=== PATIENT | male | born 1980 | race Caucasian/White ===

== ENCOUNTER 2020-02-18 08:55 | Outpatient (CLI) | payer OTHER ==
--- NOTE | 2020-02-18 09:52 | RAD ---
TWO VIEWS CHEST: DATE: 02/18/2020. PROVIDED CLINICAL HISTORY: Tobacco use. FINDINGS: No comparisons. Cardiac and mediastinal silhouette is within normal limits. No focal consolidation, pleural fluid, or pneumothorax apparent. Lungs appear hyperinflated. IMPRESSION: No evidence for an acute cardiopulmonary process. POS: [facility]
== END 2020-02-18 08:56 | disposition home or self-care (01) ==
LOC: BICRAD 08:55
PROVIDERS: ATTEND Family Medicine
DX: Z72.0 Tobacco use (principal)
CPT/HCPCS: 71046

== ENCOUNTER 2020-05-09 15:19 | Outpatient (CLI) | payer OTHER ==
--- NOTE | 2020-05-09 15:38 | RAD ---
XR Lumbar Spine 2 Or 3 View History: Left-sided sciatica Comparison: None. Findings: 5 nonrib-bearing lumbar type vertebrae. No fracture. There appear to be pars interarticular is defects at L5 with 2 mm anterolisthesis. No fracture. Mild L4/L5 degenerative disc space height loss. SI joints are remarkable. Impression: 1. 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 2. Mild-moderate degenerative disc space disease at L4/L5.
== END 2020-05-09 15:20 | disposition home or self-care (01) ==
LOC: BICRAD 15:19
PROVIDERS: ATTEND Physician Assistant
DX: M51.16 Intervertebral disc disorders with radiculopathy, lumbar region (principal)
CPT/HCPCS: 72100

== ENCOUNTER 2021-04-08 10:04 | Outpatient (CLI) | payer OTHER ==
[2021-04-08 12:59] LABS: Anion Gap 15 mmol/L (10-20); BUN (Urea Nitrogen) 15 mg/dL (8.9-20.6); Calc. Creatinine Clearance 0 mL/min (70-130); Calcium 9.5 mg/dL (7.8-10.44); Carbon Dioxide 25 mmol/L (22-29); Chloride 104 mmol/L (98-107); Glucose 81 mg/dL (70-105); Potassium 4.6 mmol/L (3.5-5.1); Sodium 139 mmol/L (136-145)
[2021-04-08 13:03] LABS: Hemoglobin 14.7 g/dL (13.5-17.5); Mean Corpuscular HGB CONC 33.7 g/dL (32.0-36.0); Mean Corpuscular Hemoglobin 29.9 pg (27.0-33.0); Mean Corpuscular Volume 88.8 fl (81.2-95.1); Mean Platelet Volume 9.9 fl (7.4-10.4); Platelet Count 303 10x3/uL (150-450); RBC Distribution Width 11.9 % (11.5-14.5); Red Blood Cell (RBC) Count 4.91 10x6/uL (4.32-5.72); White Blood Cell (WBC) Count 7.3 10x3/uL (3.5-10.5)
== END 2021-04-08 10:05 | disposition home or self-care (01) ==
LOC: LABBT 10:04
PROVIDERS: ATTEND Neurological Surgery
DX: Z01.818 Encounter for other preprocedural examination (principal); M54.16 Radiculopathy, lumbar region
CPT/HCPCS: 80048; 85027; 93005; 93010

== ENCOUNTER 2021-04-13 06:13 | Observation (INO) | payer OTHER ==
[2021-04-09 13:08] VITALS: BMI 29.5
[2021-04-13] MEDS ORDERED: Fentanyl 100 MCG/2 ML VIAL ONE ×3 (07:06→09:36)
[2021-04-13] MEDS ORDERED: HYDROmorphone 0.5 MG/0.5 ML SYRINGE ONE (07:06)
[2021-04-13] MEDS ORDERED: Midazolam HCl 2 mg/2 ml Vial ONE (07:09)
[2021-04-13] MEDS ORDERED: Dexamethasone 20 MG/5 ML VIAL ONE (07:26)
[2021-04-13] MEDS ORDERED: PROPOFOL 200 MG/20 ML VIAL ONE (07:26)
[2021-04-13] MEDS ORDERED: Rocuronium Bromide 10 MG/ML (10ML VIAL) ONE (07:26)
[2021-04-13] MEDS ORDERED: diphenhydrAMINE 50 MG/ML VIAL ONE (07:26)
[2021-04-13] MEDS ORDERED: Glycopyrrolate 0.2 MG/ML 5 ML SYRINGE ONE (07:26)
[2021-04-13] MEDS ORDERED: Ondansetron PF 4 MG/2 ML Vial ONE (07:26)
[2021-04-13] MEDS ORDERED: Ketorolac Tromethamine 30 MG/ML VIAL ONE (07:26)
[2021-04-13] MEDS ORDERED: Ondansetron HCl/PF 4 MG/2 ML Vial IVP PRN (09:14)
[2021-04-13] MEDS ORDERED: PACU-Morphine 4MG/ML VIAL SLOW IVP PRN (09:14)
[2021-04-13] MEDS ORDERED: Meperidine HCl/PF 25 MG/ML VIAL SLOW IVP PRN (09:14)
[2021-04-13] MEDS ORDERED: Morphine Sulfate 2 MG/ML SYRINGE SLOW IVP PRN (09:14)
[2021-04-13] MEDS ORDERED: Promethazine HCl 25 MG/ML VIAL IVPB PRN (09:14)
[2021-04-13] MEDS ORDERED: Promethazine HCl 25 MG/ML VIAL IM PRN (10:00)
[2021-04-13] MEDS ORDERED: Promethazine HCl 12.5 MG SUPP PR PRN (10:00)
[2021-04-13] MEDS ORDERED: Promethazine 25 MG TAB PO PRN (10:00)
[2021-04-13] MEDS ORDERED: Mag-Al 1200 mg/1200 mg/30 ML UDCUP PO PRN (10:00)
[2021-04-13] MEDS ORDERED: traMADol HCl 50 MG TAB PO PRN (10:00)
[2021-04-13] MEDS ORDERED: diphenhydrAMINE 25 MG CAP PO PRN (10:00)
[2021-04-13] MEDS ORDERED: Acetaminophen/Codeine 30-300mg Tablet PO PRN (10:00)
[2021-04-13] MEDS ORDERED: Morphine 2 MG/ML VIAL SLOW IVP PRN (10:00)
[2021-04-13] MEDS ORDERED: diphenhydrAMINE 50 MG/ML VIAL IVP PRN (10:00)
[2021-04-13] MEDS ORDERED: Ondansetron PF 4 MG/2 ML Vial IM PRN (10:00)
[2021-04-13] MEDS ORDERED: Milk Of Magnesia 30 ML UDCUP PO PRN (10:00)
[2021-04-13] MEDS: Sodium Chloride 0.9% 1,000 ML IV SCH ×3 (11:44→23:03)
[2021-04-13] MEDS: tiZANidine HCl 4 MG TAB PO PRN ×2 (13:03→19:27)
[2021-04-13] MEDS: traMADol HCl 50 MG TAB PO PRN ×2 (13:03→19:25)
[2021-04-13] MEDS: CEFAZOLIN 2 GM in Premix Bag 1 BAG IVPB SCH ×2 (15:05→21:18)
[2021-04-13] MEDS: Morphine 4 MG/ML VIAL SLOW IVP PRN ×2 (15:06→22:38)
[2021-04-14] MEDS: traMADol HCl 50 MG TAB PO PRN ×2 (01:47→07:46)
[2021-04-14] MEDS: tiZANidine HCl 4 MG TAB PO PRN ×3 (01:48→15:03)
[2021-04-14] MEDS: Acetaminophen/Codeine 30-300mg Tablet PO PRN ×2 (10:53→16:19)
[2021-04-14 11:10] VITALS: BP 108/52; TEMP 98.2
[2021-04-14] MEDS: Sodium Chloride 0.9% 1,000 ML IV SCH (13:43)
== END 2021-04-14 16:40 | disposition home or self-care (01) ==
LOC: SDC 06:13 → SJJU 10:30
PROVIDERS: ADMIT Neurological Surgery; ATTEND Neurological Surgery
PROC: 0SG1071 Fusion of 2 or more Lumbar Vertebral Joints with Autologous Tissue Substitute, Posterior Approach, Posterior Column, Open Approach (ICD-10-PCS; principal; 2021-04-13)
PROC: 0ST20ZZ Resection of Lumbar Vertebral Disc, Open Approach (ICD-10-PCS; 2021-04-13)
DX: M51.16 Intervertebral disc disorders with radiculopathy, lumbar region (principal); J45.909 Unspecified asthma, uncomplicated; Z87.891 Personal history of nicotine dependence; Z79.899 Other long term (current) drug therapy
CPT/HCPCS: 76000; 96365; 96375; 96376; C1713; C1768; G0378; J0690; J1100; J1170; J1200; J1885; J2250; J2270; J2405; J2704; J3010; J3370; J3490

== ENCOUNTER 2021-05-05 12:40 | Outpatient (CLI) | payer OTHER | END 2021-05-05 12:41 | disposition home or self-care (01) | LOC: TBSI PT 12:40 | PROVIDERS: ATTEND Neurological Surgery | DX: M54.16 Radiculopathy, lumbar region (principal); Z98.1 Arthrodesis status | CPT/HCPCS: 72100 ==

== ENCOUNTER 2021-06-16 09:00 | Outpatient (CLI) | payer OTHER | END 2021-06-16 09:01 | disposition home or self-care (01) | LOC: TBSIIMAG 09:00 | PROVIDERS: ATTEND Neurological Surgery | DX: M51.26 Other intervertebral disc displacement, lumbar region (principal); Z96.7 Presence of other bone and tendon implants | CPT/HCPCS: 72100 ==

== ENCOUNTER 2021-07-17 15:09 | Outpatient (CLI) | payer OTHER ==
[2021-07-18 17:41] LABS: SARS-CoV-2 PCR by NAA Not Detected (NotDetected)
== END 2021-07-17 15:10 | disposition home or self-care (01) ==
LOC: LABBT 15:09
PROVIDERS: ATTEND Otolaryngology Plastic Surgery within the Head & Neck
DX: Z01.812 Encounter for preprocedural laboratory examination (principal); J32.8 Other chronic sinusitis; J33.0 Polyp of nasal cavity; J34.2 Deviated nasal septum; J34.3 Hypertrophy of nasal turbinates; Z20.822 Contact with and (suspected) exposure to COVID-19
CPT/HCPCS: U0003; U0005

== ENCOUNTER 2022-02-17 07:00 | Day surgery (SDC) | payer OTHER ==
[2022-02-15 11:03] VITALS: BMI 28.5
[2022-02-17] MEDS ORDERED: AFRIN NASAL MIST 15 ML BOT ONE ×2 (07:26→08:25)
[2022-02-17] MEDS ORDERED: Lidocaine 1% MPF 2 ML VIAL ONE (07:29)
[2022-02-17] MEDS ORDERED: Midazolam HCl 2 mg/2 ml Vial ONE ×2 (08:01→08:26)
[2022-02-17] MEDS ORDERED: Lidocaine 1% w/Epinephrine 1:100K 20 ML VIAL ONE ×2 (08:25→10:47)
[2022-02-17] MEDS ORDERED: Fentanyl 250 MCG/5 ML VIAL ONE (08:26)
[2022-02-17] MEDS ORDERED: HYDROmorphone 0.5 MG/0.5 ML SYRINGE ONE (08:26)
[2022-02-17] MEDS ORDERED: Succinylcholine 200 MG/10 ml SYRINGE FS ONE (10:00)
[2022-02-17] MEDS ORDERED: Ondansetron PF 4 MG/2 ML Vial ONE (10:00)
[2022-02-17] MEDS ORDERED: PROPOFOL 200 MG/20 ML VIAL ONE (10:00)
[2022-02-17] MEDS ORDERED: Dexamethasone 20 MG/5 ML VIAL ONE (10:00)
[2022-02-17] MEDS ORDERED: Lidocaine 1% PF 5 ML VIAL ONE (10:00)
[2022-02-17] MEDS ORDERED: Bacitracin Zinc Ointment 30 gm TUBE ONE (10:19)
[2022-02-17] MEDS ORDERED: hydrALAZINE 20 MG/ML VIAL ONE (12:06)
== END 2022-02-17 13:20 | disposition home or self-care (01) ==
LOC: SDC 07:00
PROVIDERS: ATTEND Otolaryngology Plastic Surgery within the Head & Neck
DX: J32.9 Chronic sinusitis, unspecified (principal); J33.8 Other polyp of sinus; J30.89 Other allergic rhinitis; B48.8 Other specified mycoses; J34.2 Deviated nasal septum; J34.3 Hypertrophy of nasal turbinates; J45.909 Unspecified asthma, uncomplicated; J34.89 Other specified disorders of nose and nasal sinuses; Z87.891 Personal history of nicotine dependence; Z79.899 Other long term (current) drug therapy; Z98.1 Arthrodesis status
CPT/HCPCS: 87070; 87102; 87205; 87206; 88304; C2625; J0360; J1100; J1170; J2250; J2405; J2704; J3010

== ENCOUNTER 2022-03-02 17:00 | Outpatient (CLI) | payer OTHER | END 2022-03-02 17:01 | disposition home or self-care (01) | LOC: SLEEPLAB 17:00 | PROVIDERS: ATTEND Family Medicine | DX: G47.33 Obstructive sleep apnea (adult) (pediatric) (principal); R06.83 Snoring | CPT/HCPCS: 95800 ==

== ENCOUNTER 2022-07-21 19:30 | Outpatient (CLI) | payer OTHER | END 2022-07-21 19:31 | disposition home or self-care (01) | LOC: SLEEPLAB 19:30 | PROVIDERS: ATTEND Family Medicine | DX: G47.33 Obstructive sleep apnea (adult) (pediatric) (principal); R53.83 Other fatigue; R06.83 Snoring; G47.10 Hypersomnia, unspecified; J45.909 Unspecified asthma, uncomplicated; G47.00 Insomnia, unspecified; I49.1 Atrial premature depolarization | CPT/HCPCS: 95810 ==

== ENCOUNTER 2022-11-01 14:00 | Inpatient (IN) | payer OTHER ==
[2022-11-08 09:25] LABS: SARS-CoV-2 NAA Rapid Test Not Detected (NotDetected)
[2022-11-08] MEDS ORDERED: Midazolam HCl 2 mg/2 ml Vial ONE (09:54)
[2022-11-08] MEDS ORDERED: Vancomycin 1 GM VIAL ONE (10:32)
[2022-11-08] MEDS ORDERED: Sodium Chloride 0.9% 100 ML ONE (10:48)
[2022-11-08] MEDS ORDERED: CEFAZOLIN 2 GM VIAL ONE (10:48)
[2022-11-08] MEDS ORDERED: fentaNYL PF 100 MCG/2 ML SYRINGE ONE ×2 (10:55→14:12)
[2022-11-08] MEDS ORDERED: Ketorolac Tromethamine 30 MG/ML VIAL ONE (10:56)
[2022-11-08] MEDS ORDERED: Ondansetron PF 4 MG/2 ML Vial ONE (10:56)
[2022-11-08] MEDS ORDERED: PROPOFOL 200 MG/20 ML VIAL ONE (10:56)
[2022-11-08] MEDS ORDERED: Rocuronium Bromide 10 MG/ML (10ML VIAL) ONE (10:56)
[2022-11-08] MEDS ORDERED: Dexamethasone 20 MG/5 ML VIAL ONE (10:56)
[2022-11-08] MEDS ORDERED: HYDROmorphone 2 MG/ML VIAL ONE (11:27)
[2022-11-08] MEDS ORDERED: Promethazine HCl 25 MG/ML VIAL IM PRN (11:29)
[2022-11-08] MEDS ORDERED: Meperidine HCl/PF 25 MG/ML VIAL SLOW IVP PRN (11:29)
[2022-11-08] MEDS ORDERED: Ondansetron HCl/PF 4 MG/2 ML Vial IVP PRN (11:29)
[2022-11-08] MEDS ORDERED: HYDROmorphone 2 MG/ML VIAL SLOW IVP PRN (11:29)
[2022-11-08] MEDS ORDERED: SUGAMMADEX SODIUM 200 MG/2 ML VIAL ONE (12:02)
[2022-11-08] MEDS ORDERED: Mag-Al 1200 mg/1200 mg/30 ML UDCUP PO PRN (12:08)
[2022-11-08] MEDS ORDERED: Acetaminophen/Codeine 30-300mg Tablet PO PRN (12:08)
[2022-11-08] MEDS ORDERED: Promethazine 25 MG TAB PO PRN (12:08)
[2022-11-08] MEDS ORDERED: Milk Of Magnesia 30 ML UDCUP PO PRN (12:08)
[2022-11-08] MEDS ORDERED: Ondansetron PF 4 MG/2 ML Vial IVP PRN (12:08)
[2022-11-08] MEDS ORDERED: Acetaminophen 325 MG TAB PO PRN (12:08)
[2022-11-08] MEDS ORDERED: diphenhydrAMINE 25 MG CAP PO PRN (12:08)
[2022-11-08] MEDS: Sodium Chloride 0.9% 1,000 ML IV SCH (12:30)
[2022-11-08] MEDS ORDERED: HYDROmorphone 0.5 MG/0.5 ML SYRINGE ONE ×4 (12:34→13:52)
[2022-11-08] MEDS ORDERED: Acetaminophen/Codeine 30-300mg Tablet ONE (15:26)
[2022-11-08] MEDS: Acetaminophen/Codeine 30-300mg Tablet PO PRN ×2 (15:28→20:59)
[2022-11-08] MEDS: Morphine 2 MG/ML VIAL SLOW IVP PRN ×2 (17:43→22:00)
[2022-11-08] MEDS ORDERED: Morphine 2 MG/ML VIAL ONE (17:44)
[2022-11-08] MEDS: traMADol HCl 50 MG TAB PO PRN (18:48)
[2022-11-08] MEDS: CEFAZOLIN 2 GM in Sodium Chloride 0.9% 100 ML IVPB SCH (18:48)
[2022-11-08] MEDS: Cyclobenzaprine 10 MG TAB PO PRN (20:59)
[2022-11-08] MEDS ORDERED: Mometasone 200 MCG/Formoterol 5 MCG 120 PUFF INHALER INH SCH (21:45)
[2022-11-08] MEDS ORDERED: Montelukast Sodium 10 mg Tablet PO SCH (21:45)
[2022-11-08] MEDS ORDERED: Loratadine 10 MG TAB PO SCH (21:45)
[2022-11-09] MEDS: traMADol HCl 50 MG TAB PO PRN ×2 (02:13→09:41)
[2022-11-09] MEDS: CEFAZOLIN 2 GM in Sodium Chloride 0.9% 100 ML IVPB SCH (02:13)
[2022-11-09] MEDS: Sodium Chloride 0.9% 1,000 ML IV SCH ×2 (02:18→12:46)
[2022-11-09 02:22] VITALS: BMI 28.2
[2022-11-09] MEDS: Morphine 2 MG/ML VIAL SLOW IVP PRN (03:54)
[2022-11-09] MEDS: Acetaminophen/Codeine 30-300mg Tablet PO PRN ×2 (06:37→11:20)
[2022-11-09] MEDS: Cyclobenzaprine 10 MG TAB PO PRN (08:34)
[2022-11-09 12:32] VITALS: BP 110/65; TEMP 98.3
[2022-11-09] MEDS ORDERED: Mometasone 200 MCG/Formoterol 5 MCG 120 PUFF INHALER INH SCH (21:00)
[2022-11-09] MEDS ORDERED: Loratadine 10 MG TAB PO SCH (21:00)
[2022-11-09] MEDS ORDERED: Montelukast Sodium 10 mg Tablet PO SCH (21:00)
== END 2022-11-09 12:55 | disposition home or self-care (01) | DRG 460 ==
LOC: SURG A 11-08 08:23 → SURG B 11-08 18:56
PROVIDERS: ADMIT Neurological Surgery; ATTEND Neurological Surgery
PROC: 0SG3071 Fusion of Lumbosacral Joint with Autologous Tissue Substitute, Posterior Approach, Posterior Column, Open Approach (ICD-10-PCS; principal; 2022-11-08)
PROC: 0QP004Z Removal of Internal Fixation Device from Lumbar Vertebra, Open Approach (ICD-10-PCS; 2022-11-08)
PROC: 0QP104Z Removal of Internal Fixation Device from Sacrum, Open Approach (ICD-10-PCS; 2022-11-08)
DX: T84.296A Other mechanical complication of internal fixation device of vertebrae, initial encounter (principal); M54.16 Radiculopathy, lumbar region; Z20.822 Contact with and (suspected) exposure to COVID-19; Z79.51 Long term (current) use of inhaled steroids; Z79.899 Other long term (current) drug therapy; Y83.8 Other surgical procedures as the cause of abnormal reaction of the patient, or of later complication, without mention of misadventure at the time of the procedure
CPT/HCPCS: C1713; C1776; J1100; J1170; J1885; J2250; J2272; J2405; J2704; J3370; J3490; J7050; U0002

== ENCOUNTER 2022-11-03 11:40 | Outpatient (CLI) | payer OTHER ==
[2022-11-03 13:35] LABS: Hemoglobin 15.9 g/dL (13.5-17.5); Mean Corpuscular HGB CONC 34.3 g/dL (32.0-36.0); Mean Corpuscular Hemoglobin 30.5 pg (27.0-33.0); Mean Corpuscular Volume 89.1 fl (81.2-95.1); Mean Platelet Volume 9.2 fl (7.4-10.4); Platelet Count 403 10x3/uL (150-450); RBC Distribution Width 11.9 % (11.5-14.5); Red Blood Cell (RBC) Count 5.21 10x6/uL (4.32-5.72); White Blood Cell (WBC) Count 11.4 10x3/uL (3.5-10.5)
[2022-11-03 13:49] LABS: Anion Gap 17 mmol/L (10-20); BUN (Urea Nitrogen) 10 mg/dL (8.9-20.6); Calc. Creatinine Clearance 0 mL/min (70-130); Calcium 10.2 mg/dL (7.8-10.44); Carbon Dioxide 25 mmol/L (22-29); Chloride 102 mmol/L (98-107); Estimated GFR 111; Glucose 95 mg/dL (70-105); Potassium 4.1 mmol/L (3.5-5.1); Sodium 140 mmol/L (136-145)
== END 2022-11-03 11:41 | disposition home or self-care (01) ==
LOC: LABBT 11:40
PROVIDERS: ATTEND Neurological Surgery
DX: Z01.818 Encounter for other preprocedural examination (principal); M54.16 Radiculopathy, lumbar region
CPT/HCPCS: 80048; 85027; 93005; 93010

== ENCOUNTER 2022-12-03 09:20 | Outpatient (CLI) | payer OTHER | END 2022-12-03 09:21 | disposition home or self-care (01) | LOC: TBSIIMAG 09:20 | PROVIDERS: ATTEND Neurological Surgery | DX: M54.16 Radiculopathy, lumbar region (principal); Z98.890 Other specified postprocedural states | CPT/HCPCS: 72100 ==

== ENCOUNTER 2023-02-07 14:02 | Outpatient (CLI) | payer OTHER | END 2023-02-07 14:03 | disposition home or self-care (01) | LOC: TBSIIMAG 14:02 | PROVIDERS: ATTEND Neurological Surgery | DX: M54.50 Low back pain, unspecified (principal); Z98.890 Other specified postprocedural states | CPT/HCPCS: 72100 ==

== ENCOUNTER 2023-07-26 17:00 | Outpatient (CLI) | payer OTHER | END 2023-07-26 17:01 | disposition home or self-care (01) | LOC: SLEEPLAB 17:00 | PROVIDERS: ATTEND Family Medicine | DX: G47.33 Obstructive sleep apnea (adult) (pediatric) (principal); R53.83 Other fatigue; R06.83 Snoring | CPT/HCPCS: 95811 ==

== ENCOUNTER 2024-12-14 09:32 | Outpatient (CLI) | payer OTHER | END 2024-12-14 09:33 | disposition home or self-care (01) | LOC: SCSMRI 09:32 | PROVIDERS: ATTEND Family Medicine | DX: S06.9X0D Unspecified intracranial injury without loss of consciousness, subsequent encounter (principal); J34.89 Other specified disorders of nose and nasal sinuses | CPT/HCPCS: 70553; 76376 ==

== ENCOUNTER 2024-12-27 12:29 | Outpatient (CLI) | payer OTHER | END 2024-12-27 12:30 | disposition home or self-care (01) | LOC: EEG 12:29 | PROVIDERS: ATTEND Family Medicine | DX: S06.9X0D Unspecified intracranial injury without loss of consciousness, subsequent encounter (principal) | CPT/HCPCS: 95822 ==